=== PATIENT | male | born 1960 | race Caucasian/White ===

== ENCOUNTER 2018-04-12 23:15 | Inpatient (IN) | payer MEDICARE, OTHER ==
[~2018-04-12] VITALS: Ht 162.6 cm; Wt 82.3 kg
[2018-04-13 00:18] LABS: BASOPHILS # (AUTO) 0.03 x10^3/uL (0-0.1); BASOPHILS % (AUTO) 0 % (0-1); EOSINOPHILS # (AUTO) 0.19 x10^3/uL (0-0.4); EOSINOPHILS % (AUTO) 3 % (1-7); LYMPHOCYTES # (AUTO) 2.56 x10^3/uL (1-3.4); LYMPHOCYTES % (AUTO) 37 % (22-44); MD NO; MEAN CORPUSCULAR HEMOGLOBIN 30.4 pg (27.5-34.5); MEAN CORPUSCULAR HGB CONC 33.9 g/dL (33.2-36.2); MEAN CORPUSCULAR VOLUME 89.4 fL (81-97); MEAN PLATELET VOLUME 8.4 fL (7.4-10.4); MONOCYTES # (AUTO) 0.49 x10^3/uL (0.2-0.8); MONOCYTES % (AUTO) 7 % (2-9); NEUTROPHILS # (AUTO) 3.56 x10^3/uL (1.8-6.8); NEUTROPHILS % (AUTO) 52 % (42-75); PLATELET COUNT 254 x10^3/uL (130-400); RED BLOOD COUNT 4.86 x10^6/uL (4.38-5.82); RED CELL DISTRIBUTION WIDTH 13.7 % (9.4-14.8)
[2018-04-13] MEDS ORDERED: ACETAMINOPHEN 325 MG TABLET ONE (00:19)
[2018-04-13] MEDS ORDERED: DIPHENHYDRAMINE 50 MG/ML, 1ML ONE (00:19)
[2018-04-13] MEDS ORDERED: PROCHLORPERAZINE 5 MG/ML, 2ML ONE (00:19)
[2018-04-13 00:27] LABS: ALBUMIN 3.5 g/dL (3.4-5.0); ANION GAP 5 mmol/L (5-15); CALCIUM 8.3 mg/dL (8.5-10.1); CHLORIDE 107 mmol/L (98-107); CREATININE 0.85 mg/dL (0.7-1.3)
[2018-04-13] MEDS ORDERED: ACETAMINOPHEN 325 MG TABLET PO ONE (00:30)
[2018-04-13] MEDS ORDERED: PROCHLORPERAZINE 5 MG/ML, 2ML IVPush ONE (00:30)
[2018-04-13] MEDS ORDERED: DIPHENHYDRAMINE 50 MG/ML, 1ML IVPush ONE (00:30)
[2018-04-13 00:31] LABS: INTERNATIONAL NORMALIZED RATIO 2.08 (0.93-1.1); PROTHROMBIN TIME 21.3 Seconds (9.6-11.5)
[2018-04-13] MEDS ORDERED: OMNIPAQUE 350 MG/ML, 100ML BOTTLE ONE (01:16)
[2018-04-13] MEDS ORDERED: ONDANSETRON 2MG/ML, 2ML IVPush PRN ×2 (03:00→04:30)
[2018-04-13] MEDS ORDERED: ATOR40TA78 PO (03:06)
[2018-04-13] MEDS ORDERED: WARF5TAB PO (03:06)
[2018-04-13] MEDS ORDERED: WARF2.5T PO (03:06)
[2018-04-13] MEDS ORDERED: CYAN1TAB29 PO (03:06)
[2018-04-13 03:23] VITALS: BP 148/94
[2018-04-13 03:27] VITALS: BP 148/94
[2018-04-13] MEDS ORDERED: SODIUM CHLORIDE 0.9% 1,000 ML IV SCH (04:12)
[2018-04-13] MEDS ORDERED: POLYETHYLENE GLYCOL 17 GM PACKET PO PRN (04:30)
[2018-04-13] MEDS ORDERED: DOCUSATE 100 MG CAPSULE PO PRN (04:30)
[2018-04-13] MEDS ORDERED: PROMETHAZINE 25 MG/ML, 1ML IM PRN (04:30)
[2018-04-13] MEDS ORDERED: OXYcodone IR 5MG TABLET PO PRN (04:30)
[2018-04-13] MEDS ORDERED: BISACODYL 10 MG SUPP PR PRN (04:30)
[2018-04-13] MEDS ORDERED: ONDANSETRON ODT 4 MG PO PRN (04:30)
[2018-04-13] MEDS ORDERED: morphine SULFATE 10 MG/ML, 1ML IVPush PRN (04:30)
[2018-04-13] MEDS ORDERED: ACETAMINOPHEN 325 MG TABLET PO PRN (04:30)
[2018-04-13] MEDS ORDERED: ENALAPRILAT 1.25 MG/ML, 2ML IVPush PRN (04:30)
[2018-04-13] MEDS ORDERED: LABETALOL 5MG/ML, 20ML IVPush PRN (04:30)
[2018-04-13] MEDS ORDERED: HEPARIN 5,000 UNITS/ML, 1ML SQ SCH (04:30)
[2018-04-13 05:53] LABS: FREE T4 (FREE THYROXINE) 0.97 ng/dL (0.76-1.46); HEMOGLOBIN A1C 7.1 % (4.2-6.3); THYROID STIMULATING HORMONE 8.75 mIU/L (0.358-3.740)
[2018-04-13] MEDS ORDERED: ASPIRIN 325 MG TABLET EC PO SCH (06:00)
[2018-04-13 07:21] VITALS: BP 123/81
[2018-04-13] MEDS ORDERED: Cyanocobalamin/Folic Acid** (Vitamin B12-Folic Acid Tablet**) PO SCH (09:00)
[2018-04-13] MEDS: INSULIN LISPRO 100 UNITS/ML, PEN SQ-INSULIN SCH ×3 (09:14→17:31)
[2018-04-13] MEDS ORDERED: GADOBUTROL 10 MMOL/10 ML VIAL ONE (12:02)
[2018-04-13 12:50] VITALS: BP 137/85
[2018-04-13] MEDS ORDERED: BUTALBIT/ACETAMIN/CAFF/CODEINE CAPSULE PO PRN (17:30)
[2018-04-13] MEDS ORDERED: fioricet PO (17:40)
[2018-04-13] MEDS ORDERED: WARFARIN 2.5 MG TABLET PO-COUM ONE (18:00)
[2018-04-13] MEDS ORDERED: ATORVASTATIN 40 MG TABLET PO SCH (21:00)
== END 2018-04-13 18:42 | disposition home or self-care (01) | DRG 102 ==
LOC: ED 23:59 → EDIP 04-13 03:17 → 4WST 04-13 03:19
PROVIDERS: ADMIT Internal Medicine; ATTEND Internal Medicine
DX: R51 Headache (principal); G93.40 Encephalopathy, unspecified; D68.59 Other primary thrombophilia; E11.9 Type 2 diabetes mellitus without complications; E78.5 Hyperlipidemia, unspecified; J32.0 Chronic maxillary sinusitis; Z79.01 Long term (current) use of anticoagulants; Z80.0 Family history of malignant neoplasm of digestive organs; I69.320 Aphasia following cerebral infarction
CPT/HCPCS: 36415; 70450; 70496; 70546; 70553; 80048; 82040; 82962; 83036; 83735; 84439; 84443; 85025; 85610; 93306; 96374; 96375; 99285; A9585; Q9967; J0780; J1200; J1815; J7030